=== PATIENT | male | born 1980 | race Caucasian/White ===

== ENCOUNTER 2018-11-02 17:19 | Emergency (ER) | payer OTHER, SELFPAY ==
[2018-11-02 17:20] VITALS: BP 131/91; PULSE 98; RESP 16; TEMP 36.8; O2SAT 99; BMI 30.6
--- NOTE | 2018-11-02 17:26 | RAD_ITS ---
HISTORY:INJURY TO RING FINGER INJURY TO RING FINGER COMPARISON: None FINDINGS: # of images incl. paperwork: 3 XR Hand Min 3 Views: Right BONE AND JOINTS: There is a minimally displaced fracture involving the proximal base distal phalanx right fourth finger at the volar aspect. This extends intra-articularly. The fracture fragment is rotated volarly. SOFT TISSUES: Associated soft tissue swelling No radiopaque foreign body. RAD/Hand Min 3 Views IMPRESSION: Fourth finger fracture right hand as discussed at 1746 Reported and signed by: Hyacinth Cope DO Electronically Signed: Hyacinth Cope DO at 17:45 EDT Tel , Service support ,
--- NOTE | 2018-11-02 17:26 | ED.DCSUM_ITS ---
History of Present Illness Chief Complaint: Upper Extremity Injury Informant: Patient Onset: Today Context: Sudden Onset Timing: Continuous Current Severity: Mild Maximum Severity: Moderate Narrative: The patient presents to the emergency department right hand injury. He is right-hand dominant. He states he was trying to catch a garage door. His finger slipped, and he was carrying the weight with his right fourth finger on the palmar aspect. He states that since then, he had a difficult time bending the finger. He denies other injury. He is otherwise healthy. He has not taken anything for his symptoms. Prior similar symptoms: No Recent Illness/Hospitalization: No Past Medical History - Allergies and Home Meds Allergies/Adverse Reactions: Allergies amoxicillin Allergy (Verified 11/02/18 17:22) Unknown Primary Care Physician: Care Physician,No Primary [Primary Care Provider] - Prior records reviewed: Yes Past Medical History: None Surgical History: no surgical history, - - [place] teeth Smoking Status: Former smoker Alcohol: None Drugs: None - Family History Maternal Family History: Reports: Cancer - Ovarian Paternal Family History: Reports: - - Alcoholism Review of Systems General: Denies: Chills, Fever, Sweats Eyes: Denies: Visual changes - bilaterally, Diplopia ENT: Denies: Rhinorrhea, Sore throat Cardiovascular: Denies: Chest pain, Palpitations Respiratory: Denies: Dyspnea, Cough, Dyspnea on exertion Gastrointestinal: Denies: Abdominal pain, Nausea, Vomiting, Diarrhea, Melena, Hematochezia Genitourinary: Denies: Dysuria, Hematuria, Frequency Musculoskeletal: Denies: Back pain, Extremity Pain Skin: Denies: Rash, Wounds Neurological: Denies: Headache, Weakness, Numbness Physical Exam Vital Signs/Narrative: Vital Signs Temp Pulse Resp BP Pulse Ox 11/02/18 17:20 98.3 F 98 16 131/91 H 99 Inital Vital Signs reviewed: Yes General: Well nourished, Well developed, No Acute Distress Head: Normocephalic, Atraumatic Eyes: Perrl, EOMI ENT: Moist mucous membranes, No rhinorrhea Neck: Supple, Nontender Cardiovascular: Regular rate, Regular rhythm, No murmurs Respiratory: No distress, CTA bilaterally, Chest nontender Abdomen: Soft, Nontender, Nondistended, Normal bowel sounds Back: Nontender, Normal Inspection Extremities: No edema, Tenderness - Patient does have diminished flexion of the superficialis. There is normal two-point discrimination. His cap refill is normal. Skin: Normal color, No rash Neurological: Alert, Oriented x3, Cranial nerves II-XII grossly intact, Normal Strength, Normal Sensation Psychological: Normal affect, Normal Mood Diagnostic/Tx/Re-eval Clinical Impression(s) from Imaging Studies Hand X-Ray 11/02/18 17:26 IMPRESSION: Fourth finger fracture right hand as discussed at 1746 Reported and signed by: Hyacinth Cope DO Electronically Signed: Hyacinth Cope DO at 17:45 EDT Tel , Service support , - Medical Decision Making The patient presents with injury to his right fourth finger. My suspicion was for a jersey finger as he cannot flex at the flexor profundus. I did obtain plain films. There does appear to be an avulsion fracture at the insertion of the tendon. The patient was placed in AlumaFoam splint. He will be given outpatient orthopedic follow-up as I did community health counselor him this may need surgical fixation. He is comfortable with this plan of care and will be discharged home. Impression 1. Distal phalanx fracture with tendon disruption ED Disposition - Plan for ED Patient: Instructions: FRACTURE, Finger (Closed) Referrals: Mariluz Velez DO [STAFF PHYSICIAN] -
[2018-11-02 17:57] VITALS: BP 128/90; PULSE 92; RESP 14; O2SAT 98
== END 2018-11-02 18:04 | disposition home or self-care (01) ==
LOC: ED 17:50
PROVIDERS: Emergency Provider Emergency Medicine
DX: S62.634A Displaced fracture of distal phalanx of right ring finger, initial encounter for closed fracture (principal); S66.104A Unspecified injury of flexor muscle, fascia and tendon of right ring finger at wrist and hand level, initial encounter; X58.XXXA Exposure to other specified factors, initial encounter; Y93.9 Activity, unspecified; Y92.9 Unspecified place or not applicable; Y99.9 Unspecified external cause status; Z87.891 Personal history of nicotine dependence
CPT/HCPCS: 73130; 99284